=== PATIENT | female | born 1950 | race Caucasian/White ===

== ENCOUNTER 2019-06-04 06:31 | Day surgery (SDC) | payer MEDICARE, OTHER, MEDICAID ==
[2019-06-04] MEDS ORDERED: FENTAnyl 50 MCG/ML VIAL IV ×3 (07:30)
[2019-06-04] MEDS ORDERED: PROPOFOL 40 ML (07:35)
[2019-06-04] MEDS ORDERED: PROPOFOL 20 ML (08:56)
== END 2019-06-04 10:19 | disposition home or self-care (01) ==
LOC: GIL 06:31
DX: R19.4 Change in bowel habit (principal); I10 Essential (primary) hypertension; E11.9 Type 2 diabetes mellitus without complications; E03.9 Hypothyroidism, unspecified; Z79.82 Long term (current) use of aspirin
CPT/HCPCS: 45380; 82962; 88305; 88313